=== PATIENT | male | born 1995 ===

== ENCOUNTER 2017-04-03 10:45 | Emergency (ER) | payer OTHER ==
[2017-04-03 10:59] VITALS: BP 145/72; PULSE 67; RESP 16; TEMP 98.1; O2SAT 100
--- NOTE | 2017-04-03 11:37 | ED PDOC ---
HPI: General Adult Time Seen by Provider: 04/03/17 11:15 Chief Complaint (Nursing): Abnormal Skin Integrity Chief Complaint (Provider): cyst History Per: Patient, Other (Girlfriend is at bedside translation for patient in senegalese) Additional Complaint(s): 21-year-old male presents to emergency department for evaluation of painful cyst to tailbone region. Patient has had cyst for several months but over the past few days he has noticed pain and redness. He denies active drainage, bleeding, fever or chills. PMD: none Past Medical History Reviewed: Historical Data, Nursing Documentation, Vital Signs Vital Signs: Last Vital Signs Temp 98.1 F 04/03/17 10:57 Pulse 67 04/03/17 10:57 Resp 16 04/03/17 10:57 BP 145/72 04/03/17 10:57 Pulse Ox 100 04/03/17 10:57 - Medical History PMH: No Chronic Diseases - Surgical History Surgical History: No Surg Hx - Family History Family History: States: No Known Family Hx - Living Arrangements Living Arrangements: With Family - Social History Current smoker - smoking cessation education provided: No Alcohol: None Drugs: Denies - Home Medications Home Medications: Ambulatory Orders Medication Instructions Recorded Clindamycin [Cleocin] 300 mg PO TID #21 cap 04/03/17 Ibuprofen [Motrin] 600 mg PO Q6 PRN #15 tab 04/03/17 - Allergies Allergies/Adverse Reactions: Allergies Allergy/AdvReac Type Severity Reaction Status Date / Time No Known Allergies Allergy Verified 04/03/17 10:57 Review of Systems ROS Statement: Except As Marked, All Systems Reviewed And Found Negative Constitutional: Negative for: Fever Skin: Positive for: Other (cyst to lower back) Physical Exam - Reviewed Nursing Documentation Reviewed: Yes - Physical Exam Appears: Positive for: Well Head Exam: Positive for: ATRAUMATIC, NORMAL INSPECTION, NORMOCEPHALIC Skin: Negative for: Rash Eye Exam: Positive for: Normal appearance Cardiovascular/Chest: Positive for: Regular Rate, Rhythm Respiratory: Positive for: Normal Breath Sounds Back: Positive for: Other (3 cm indurated, nonfluctuant pilonidal cyst noted to gluteal cleft, mildly tender to palpation, no central pointing, no active drainage or bleeding) Extremity: Positive for: Normal ROM Neurologic/Psych: Positive for: Alert, Oriented - ECG O2 Sat by Pulse Oximetry: 100 Pulse Ox Interpretation: Normal Medical Decision Making Medical Decision Making: Impression: Pilonidal abscess Plan: PO motrin Rx motrin and clindamcyin There is no indication at this time for incision and drainage given lack of fluctuance and presence of induration with no central pointing Advisd warm compresses to affected area Clinic follow up Disposition - Clinical Impression Clinical Impression: Pilonidal abscess Counseled Patient/Family Regarding: Diagnosis, Need For Followup, Rx Given - Disposition Referrals: [facility] [Outside] Disposition: Routine/Home Disposition Time: 11:41 Condition: STABLE Additional Instructions: Apply warm compresses with Epsom salts to affected area as often as possible. Take prescription medications as directed. Follow-up with clinic in 2-3 days. Prescriptions: Clindamycin [Cleocin] 300 mg PO TID #21 cap Ibuprofen [Motrin] 600 mg PO Q6 PRN #15 tab PRN Reason: Pain, Moderate (4-7) Instructions: Abscess (ED) Forms: [employer] (Danish) Print Language: MONGOLIAN
== END 2017-04-03 11:50 | disposition home or self-care (01) ==
LOC: H.ER 10:45
DX: L05.01 Pilonidal cyst with abscess (principal)

== ENCOUNTER 2017-06-21 15:31 | Emergency (ER) | payer SELFPAY ==
[2017-06-21 15:42] VITALS: BP 132/73; PULSE 76; RESP 18; TEMP 98.6; O2SAT 99
--- NOTE | 2017-06-21 16:37 | ED PDOC ---
HPI: Wound Care - HPI Time Seen by Provider: 06/21/17 15:45 Chief Complaint (Nursing): Wound Check Chief Complaint (Provider): Wound Check History Per: Patient Exam Limitations: no limitations Onset/Duration Of Symptoms: Days (x2) Current Symptoms Are (Timing): Still Present Additional Complaint(s): 21 y/o male presents to the emergency department complaining that 2 days ago he noticed a nonpainful mass to his lower back. States at the same area he had a "boil" 1 month ago, not requiring drainage. Patient reports he was advised by the clinic to come to the ED if boil returned. Denies any fever, pain, trauma, or discharge. PMD: [facility] in [place] Past Medical History Reviewed: Historical Data, Nursing Documentation, Vital Signs Vital Signs: Last Vital Signs Temp 98.6 F 06/21/17 15:39 Pulse 76 06/21/17 15:39 Resp 18 06/21/17 15:39 BP 132/73 06/21/17 15:39 Pulse Ox 99 06/21/17 15:39 - Medical History PMH: No Chronic Diseases - Surgical History Surgical History: No Surg Hx - Family History Family History: States: Unknown Family Hx - Social History Current smoker - smoking cessation education provided: No Alcohol: None Drugs: Denies - Home Medications Home Medications: Ambulatory Orders Medication Instructions Recorded Clindamycin [Cleocin] 300 mg PO TID #21 cap 04/03/17 Ibuprofen [Motrin] 600 mg PO Q6 PRN #15 tab 04/03/17 - Allergies Allergies/Adverse Reactions: Allergies Allergy/AdvReac Type Severity Reaction Status Date / Time No Known Allergies Allergy Verified 04/03/17 10:57 Review of Systems ROS Statement: Except As Marked, All Systems Reviewed And Found Negative Constitutional: Negative for: Fever, Chills Skin: Positive for: Other (nonpainful mass to lower back). Negative for: Lesions (or discharge) Physical Exam - Reviewed Nursing Documentation Reviewed: Yes Vital Signs Reviewed: Yes - Physical Exam Appears: Positive for: No Acute Distress Back: Positive for: Other (1 small granuloma without surrounding erythema, discharge, or swelling). Negative for: Normal Inspection - ECG O2 Sat by Pulse Oximetry: 99 (RA) Pulse Ox Interpretation: Normal Medical Decision Making Medical Decision Making: Impression: Visit for wound check Plan: Upon provider evaluation patient is medically stable, and requires no further treatment in the ED at this time. Patient advised to follow up with [facility] surgical clinic for possible removal of granuloma. Scribe Attestation: Documented by Bessy Nunez, acting as a scribe for Cheo Arreaga PA-C. Provider Scribe Attestation: All medical record entries made by the Scribe were at my direction and personally dictated by me. I have reviewed the chart and agree that the record accurately reflects my personal performance of the history, physical exam, medical decision making, and the department course for this patient. I have also personally directed, reviewed, and agree with the discharge instructions and disposition. Disposition - Clinical Impression Clinical Impression: Visit for wound check - Patient ED Disposition Is Patient to be Admitted: No Counseled Patient/Family Regarding: Diagnosis, Need For Followup - Disposition Referrals: [facility] [Outside] Disposition: Routine/Home Disposition Time: 16:30 Condition: STABLE Additional Instructions: Follow up with [facility] for further evaluation. Return to ED immediately if symptoms worsen. Instructions: Wound Care (DC) Forms: [employer] (Maltese) Print Language: ESTONIAN - POA Present On Arrival: None
== END 2017-06-21 16:31 | disposition home or self-care (01) ==
LOC: H.ER 15:31
DX: Z48.00 Encounter for change or removal of nonsurgical wound dressing (principal)

== ENCOUNTER 2017-07-03 11:21 | Emergency (ER) | payer SELFPAY ==
[2017-07-03 12:01] VITALS: BP 126/76; PULSE 74; TEMP 98.9; O2SAT 99
[2017-07-03] MEDS ORDERED: Oxycodone/Acetaminophen 5/325 mg Tab PO STA (12:30)
[2017-07-03 12:32] VITALS: RESP 18
--- NOTE | 2017-07-03 12:37 | ED PDOC ---
HPI: Skin/Bite Injury Time Seen by Provider: 07/03/17 12:14 Chief Complaint (Nursing): Abnormal Skin Integrity Chief Complaint (Provider): Abnormal Skin Integrity History Per: Patient History/Exam Limitations: no limitations Additional Complaint(s): 21 y/o male presents to the ED complaining of abscess on sacrum that is draining and bleeding. Patient was seen here on April for a painful cyst to tailbone region. He was given a prescription for for clindamycin and asked to follow up. He was seen here again in May for non painful mass to his lower back and was asked to follow up. Reports that he was unable to make an appointment for the clinic until July 10. Denies any further medical complaints. PMD: [facility] Past Medical History Reviewed: Historical Data, Nursing Documentation, Vital Signs Vital Signs: Last Vital Signs Temp 98.9 F 07/03/17 12:27 Pulse 74 07/03/17 12:27 Resp 18 07/03/17 12:27 BP 126/76 07/03/17 12:27 Pulse Ox 99 07/03/17 12:49 - Medical History PMH: No Chronic Diseases - Surgical History Surgical History: No Surg Hx - Family History Family History: States: Unknown Family Hx - Social History Current smoker - smoking cessation education provided: No Alcohol: None Drugs: Denies - Home Medications Home Medications: Ambulatory Orders Medication Instructions Recorded Clindamycin [Cleocin] 300 mg PO TID #21 cap 04/03/17 Ibuprofen [Motrin] 600 mg PO Q6 PRN #15 tab 04/03/17 Clindamycin [Cleocin] 300 mg PO QID #40 cap 07/03/17 oxyCODONE/Acetaminophen [Percocet 1 ea PO Q6H PRN #15 tab 07/03/17 5/325 mg Tab] - Allergies Allergies/Adverse Reactions: Allergies Allergy/AdvReac Type Severity Reaction Status Date / Time No Known Allergies Allergy Verified 04/03/17 10:57 Review of Systems ROS Statement: Except As Marked, All Systems Reviewed And Found Negative (As per HPI, otherwise negative) Skin: Positive for: Other (Abscess on sacrum) Physical Exam - Reviewed Nursing Documentation Reviewed: Yes Vital Signs Reviewed: Yes - Physical Exam Appears: Positive for: Non-toxic, No Acute Distress Head Exam: Positive for: ATRAUMATIC, NORMOCEPHALIC Skin: Positive for: Normal Color (Cyst gluteal cleft; granulated tissue noted at the most superior part; no surrounding erythema noted, tender to palpation; indurated ), Warm, Dry Eye Exam: Positive for: Normal appearance ENT: Positive for: Normal ENT Inspection Neck: Positive for: Normal Respiratory: Negative for: Accessory Muscle Use, Respiratory Distress Back: Positive for: Normal Inspection Extremity: Positive for: Normal ROM Neurologic/Psych: Positive for: Alert, Oriented - ECG O2 Sat by Pulse Oximetry: 99 (RA) Pulse Ox Interpretation: Normal Medical Decision Making Medical Decision Making: Time: 12:30 Plan: Oxycodone 1tab PO Discussed case with Dr. Santizo, appointment for wed at [address] Sal[address]. Scribe Attestation: Documented by Aldo Sierra acting as a scribe for SUMMER Claros. Scribe Attestation: All medical record entries made by the Scribe were at my direction and personally dictated by me. I have reviewed the chart and agree that the record accurately reflects my personal performance of the history, physical exam, medical decision making, and the department course for this patient. I have also personally directed, reviewed, and agree with the discharge instructions and disposition. Disposition - Clinical Impression Clinical Impression: Pilonidal abscess - Patient ED Disposition Is Patient to be Admitted: No Counseled Patient/Family Regarding: Diagnosis, Need For Followup, Rx Given - Disposition Referrals: [facility] [Outside] Disposition: Routine/Home Disposition Time: 12:44 Condition: STABLE Additional Instructions: Please follow-up with Dr. Salazar in the [facility] on 07/08/17 at 2:40 pm. Prescriptions: Clindamycin [Cleocin] 300 mg PO QID #40 cap oxyCODONE/Acetaminophen [Percocet 5/325 mg Tab] 1 ea PO Q6H PRN #15 tab PRN Reason: Pain, Severe (8-10) Instructions: Pilonidal Cyst Forms: [employer] (Swedish) Print Language: MAORI
[2017-07-03] MEDS ORDERED: Oxycodone/Acetaminophen 5/325 mg Tab ONE (12:52)
== END 2017-07-03 13:26 | disposition home or self-care (01) ==
LOC: H.ER 11:21
DX: L05.01 Pilonidal cyst with abscess (principal)

== ENCOUNTER 2017-09-03 12:06 | Day surgery (SDC) | payer SELFPAY ==
[2017-09-01 14:46] VITALS: BMI 27.4
--- NOTE | 2017-09-03 13:54 | CP.SDSHP ---
<El Kellogg - Last Filed: 09/03/17 13:52> Same Day Surgery H & P - History Proposed Procedure: Pilonidal cyst excision Pre-Op Diagnosis: pilonidal cyst - Previous Medical/Surgical History Previous Surgical History: non e - Allergies Allergies: Allergies No Known Allergies Allergy (Verified 04/03/17 10:57) - Physical Exam General Appearance: NAD Vital Signs: Vital Signs 09/03/17 13:01 Temperature 98.1 F Pulse Rate 71 Respiratory 18 Rate Blood Pressure 114/53 L O2 Sat by Pulse 99 Oximetry Mental Status: Alert & Oriented x3 Neuro: WNL Heart: WNL - {Optional Preform as Required} Abdomen: WNL Rectal: WNL Integument: Other (1x1cm pilonidal cyst. draining ss fluids. open wound) - Impression Pt. Evaluated Today:Candidate for Anesthesia & Procedure: Yes - Date & Time Date: 09/03/17 Time: 13:54 Short Stay Discharge - Short Stay Discharge Admitting Diagnosis/Reason for Visit: L05. Disposition: HOME/ ROUTINE Medications: oxyCODONE/Acetaminophen [Percocet 5/325 mg Tab] 1 ea PO Q4 PRN #20 tab PRN Reason: Pain, Moderate (4-7) Referrals: Tricia Jenkins MD [Primary Care Provider] - Bryanna Tabor MD [Staff Provider] - Instructions: Pilonidal Cyst, Rylan-Valdes Drain, Stitches <Nasra Mckeon - Last Filed: 09/03/17 20:50> Same Day Surgery H & P - Allergies Allergies: Allergies No Known Allergies Allergy (Verified 04/03/17 10:57) - Physical Exam Vital Signs: Vital Signs 09/03/17 09/03/17 13:01 20:31 Temperature 98.1 F 97.8 F Pulse Rate 71 71 Respiratory 18 16 Rate Blood Pressure 114/53 L 122/55 L O2 Sat by Pulse 99 99 Oximetry Short Stay Discharge - Short Stay Discharge Follow-up: Follow up w/ Dr. Tabor in office, across from [facility], on Thursday @3pm Take medication as prescribed Pt may take OTC pain meds Do NOT shower until drain removed on Thursday @3pm in office drain care as demonstrated by nursing call Dr. Tabor &/or return to ED if fever >100.4, pain, redness, drainage, suture rupture no heavy lifting until seen in office.
[2017-09-03] MEDS ORDERED: ceFAZolin IV 1 gm in Dextrose 2 GM/100 ML BAG IVPB ONE (18:14)
[2017-09-03] MEDS ORDERED: Methylene Blue 10 mg/mL(10ml) IV ONE (18:14)
[2017-09-03] MEDS ORDERED: Succinylcholine 200 mg/10 ml Inj IV ONE (18:24)
[2017-09-03] MEDS ORDERED: Propofol 10 mg/ml Inj (20 ML) ONE (18:24)
[2017-09-03] MEDS ORDERED: Lidocaine 4% (Laryng-O-Jet) Kit MM ONE (18:26)
[2017-09-03] MEDS ORDERED: Midazolam 2 MG/2 ML VIAL ONE (19:13)
[2017-09-03] MEDS ORDERED: Dexamethasone 4 mg/1 ml ONE (19:30)
[2017-09-03] MEDS ORDERED: Lactated Ringer's 1,000 ML IV ONE (20:10)
[2017-09-03] MEDS ORDERED: Lactated Ringer's 1,000 ML IV SCH (20:45)
[2017-09-03] MEDS ORDERED: Oxycodone/Acetaminophen 5/325 mg Tab PO PRN (20:51)
--- NOTE | 2017-09-03 20:56 | PCM.SURG1 ---
Surgeon's Initial Post Op Note - Surgeon's Notes Surgeon: Dr. Tabor Shanker Out: Dr. Mckeon PGY3 Type of Anesthesia: General Endo Pre-Operative Diagnosis: pilonidal cyst Operative Findings: open lesion activly draining above gluteal cleft. lesion probed and connected to draining sinus w/in gluteal cleft. cresent shaped incision made connecting draining sinus w/ open lesion. area undermined for tension-free closure. vertical matresses and simple interrupted suture used to close defect in skin. Post-Operative Diagnosis: same Operation Performed: pilonidal cyst excision Specimen/Specimens Removed: pilonidal cyst Estimated Blood Loss: EBL {In ML}: 10 Blood Products Given: N/A Drains Used: Dm Post-Op Condition: Good Date of Surgery/Procedure: 09/03/17 Time of Surgery/Procedure: 20:30
[2017-09-03] MEDS: HYDROmorphone 0.5 mg/0.5 ml ISec IVP PRN ×2 (21:00→21:15)
[2017-09-03 21:20] VITALS: RESP 19
[2017-09-03 21:52] VITALS: BP 130/63; PULSE 75; TEMP 98.4; O2SAT 97
--- NOTE | 2017-09-05 02:29 | OP ---
PROCEDURE DATE: 09/03/2017 SURGEON: Bryanna Tabor MD [facility] CONSULTANT: Dr. Mckeon. ANESTHESIA: General. ANESTHESIA ADMINISTERED BY: Donald Chandler MD PREOPERATIVE DIAGNOSIS: Pilonidal cyst. POSTOPERATIVE DIAGNOSIS: Pilonidal cyst. PROCEDURE: Excision of pilonidal cyst with local advancement flap closure. DESCRIPTION OF OPERATION: The patient was anesthetized and then placed on the operating table in the prone position. The lower back and buttocks area was prepped and draped in the usual sterile manner. The patient was noted to have an open granulating lesion which was draining pus to the left of the midline above the gluteal crease, and a probe was passed into this area and noted to connect with a midline pit in the upper quarter of the gluteal crease. A crescentic incision was marked to encompass the area of induration on the buttock as well as the area of the affected pit, and the incision was taken down through the full thickness of skin. Subcutaneous tissue was then widely excised to encompass all areas of inflammation including a cystic type deep abscess, and this material was excised down to the fascia in the areas of inflammation including the area of the perineal crease. This material was removed on block, and the flaps were then mobilized laterally on each side in the level between the subcutaneous tissue and the muscle fascia and to allow the skin to be reapproximated with minimal tension. A 15-Maori Dm drain was placed, brought out through the left buttock via the stab wound, and the context flap was then advanced across the midline and approximated at the lower end with interrupted mattress sutures of 4-0 Prolene in the main portion of the presacral area with mattress sutures of 2-0 Prolene. Additional simple and mattress sutures of 4-0 Prolene were used to approximate the skin and allow closure for the suction drain to work appropriately. The drain was attached to suction and noted to maintain pressure within the surgical site. Xeroform gauze followed by a dry sterile dressing was applied. The patient tolerated the procedure well and transferred to the recovery room in stable condition. Estimated blood loss for the procedure was 50 mL. Bryanna Tabor MD [facility] # [id number]
== END 2017-09-04 01:11 | disposition home or self-care (01) ==
LOC: H.OPSURG 12:06 → H.MEDSURG1 22:52 → H.OPSURG 09-04 01:11
PROVIDERS: ATTEND Specialist
DX: L05.91 Pilonidal cyst without abscess (principal)
CPT/HCPCS: 11770; 88307; J0330; J0690; J1100; J1170; J1885; J2001; J2250; J2405; J2704; J2765; J3010; J7030; J7120

== ENCOUNTER 2018-01-28 12:03 | Emergency (ER) | payer SELFPAY ==
[2018-01-28 12:03] VITALS: BMI 27.4
[2018-01-28 12:13] VITALS: RESP 16; O2SAT 99
[2018-01-28] MEDS ORDERED: Silver Nitrate Topical - Stick TOP ONE (13:53)
[2018-01-28] MEDS ORDERED: Silver Nitrate Topical - Stick ONE (14:21)
--- NOTE | 2018-01-28 14:51 | ED PDOC ---
HPI: General Adult Time Seen by Provider: 01/28/18 12:29 Chief Complaint (Nursing): Wound Check Chief Complaint (Provider): Back pain History Per: Patient History/Exam Limitations: no limitations Onset/Duration Of Symptoms: Hrs (today) Additional Complaint(s): 22 y/o male presents to the ED complaining of pain in his lower back, onset earlier today. Patient states the symptoms are similar to pain he had in the past when he had a pilonidal abscess. Patient was seen in August by Dr. Tabor and was taken to OR for removal of cyst. He has had no complications or drainage from the site since then. Past Medical History Reviewed: Historical Data, Nursing Documentation, Vital Signs Vital Signs: Last Vital Signs Temp 98.5 F 01/28/18 12:10 Pulse 66 01/28/18 12:10 Resp 16 01/28/18 12:10 BP 125/65 01/28/18 12:10 Pulse Ox 99 01/28/18 12:10 - Medical History PMH: No Chronic Diseases Denies: Chronic Kidney Disease - Surgical History Other surgeries: pilonidal cyst removal - Family History Family History: States: Unknown Family Hx - Home Medications Home Medications: Ambulatory Orders Medication Instructions Recorded Ibuprofen [Motrin Tab] 600 mg PO Q6 PRN #15 tab 04/03/17 oxyCODONE/Acetaminophen [Percocet 1 ea PO Q4 PRN #20 tab 09/03/17 5/325 mg Tab] Cephalexin [Keflex] 500 mg PO BID #14 capsule 01/28/18 - Allergies Allergies/Adverse Reactions: Allergies Allergy/AdvReac Type Severity Reaction Status Date / Time No Known Allergies Allergy Verified 04/03/17 10:57 Review of Systems ROS Statement: Except As Marked, All Systems Reviewed And Found Negative Musculoskeletal: Positive for: Back Pain Physical Exam - Reviewed Nursing Documentation Reviewed: Yes Vital Signs Reviewed: Yes - Physical Exam Appears: Positive for: Non-toxic, No Acute Distress Head Exam: Positive for: ATRAUMATIC, NORMOCEPHALIC Skin: Positive for: Normal Color, Warm, DRY Eye Exam: Positive for: EOMI, Normal appearance, PERRL Cardiovascular/Chest: Positive for: Regular Rate, Rhythm. Negative for: Murmur Respiratory: Positive for: Normal Breath Sounds. Negative for: Respiratory Distress Back: Positive for: Other (tenderness to left gluteal region over scar from previous surgery; scar is healed and light pink in color with no surreounding erythema; no obvoius fluid collection on palpation) Extremity: Positive for: Normal ROM. Negative for: Pedal Edema, Deformity Neurologic/Psych: Positive for: Alert, Oriented. Negative for: Motor/Sensory Deficits - ECG O2 Sat by Pulse Oximetry: 99 (RA) Pulse Ox Interpretation: Normal Medical Decision Making Medical Decision Making: Time: 13:53 Initial Impression: pilonidal cyst Initial Plan: * Potassium silver nitrate * Discussed case with residential mental health worker Time: 14:15 residential mental health worker came to evaluate patient at bedside. Scribe Attestation: Documented by Raza Antonio, acting as a scribe for Marie Posadas PA-C. Provider Scribe Attestation: All medical record entries made by the Scribe were at my direction and personally dictated by me. I have reviewed the chart and agree that the record accurately reflects my personal performance of the history, physical exam, medical decision making, and the department course for this patient. I have also personally directed, reviewed, and agree with the discharge instructions and disposition. Disposition - Clinical Impression Clinical Impression: Abscess - Patient ED Disposition Is Patient to be Admitted: No Counseled Patient/Family Regarding: Diagnosis, Need For Followup - Disposition Referrals: Bryanna Tabor MD [Staff Provider] - Disposition: Routine/Home Disposition Time: 14:50 Condition: GOOD Prescriptions: Cephalexin [Keflex] 500 mg PO BID #14 capsule Instructions: Skin Abscess Forms: [employer] (Croatian)
[2018-01-28 15:43] VITALS: BP 123/81; PULSE 78; TEMP 98.4
== END 2018-01-28 15:43 | disposition home or self-care (01) ==
LOC: H.ER 12:03
DX: L05.01 Pilonidal cyst with abscess (principal)